=== PATIENT | male | born 1975 | race Caucasian/White ===

== ENCOUNTER 2020-08-23 16:20 | Emergency (ER) | payer BC ==
[~2020-08-23] VITALS: Ht 182.8 cm; Wt 90.7 kg
--- NOTE | 2020-08-23 16:57 | ED General ---
General Chief Complaint: General Problems/Pain Stated Complaint: COLLAR BONE PAIN/DIZZINESS Nursing Triage Note: Pt reports L sided collar bone pain and indigestion. Pt reports feeling lightheaded today while driving. Pt also reprots headache and states heart rate was 102 on watch while in the waiting room. Pt's heart rate was within normal limits at time of assessment. Nursing Sepsis Screen: No Definite Risk Source of Information: Patient Exam Limitations: No Limitations History of Present Illness Date Seen by Provider: Aug 23, 2020 Time Seen by Provider: 16:56 Initial Comments This is a 44-year-old male who is presents with left-sided collarbone pain and indigestion 2 weeks. States he was driving home today and felt lightheaded and almost passed out. Denies any episodes of syncope. States he has been monitoring his heart rate on his watch and the highest it has reached is 102bmp. Reports intermittent episodes of cool feeling on the left side of his face and intermittent episodes of blurry vision over the past couple weeks. 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 However, sought ED evaluation due to persistency of episodes. Allergies and Home Medications Allergies Coded Allergies: No Known Drug Allergies (Unverified , 08/23/20) Home Medications Cyclobenzaprine HCl 10 Mg Tablet, 10 MG PO TID PRN for PAIN-MODERATE (5-7) Prescribed by: SHAUN ACEVEDO on 08/23/20 0123 Patient Home Medication List Home Medication List Reviewed: Yes Review of Systems Review of Systems Constitutional: see HPI EENTM: see HPI Respiratory: no symptoms reported Cardiovascular: see HPI Gastrointestinal: no symptoms reported Genitourinary: no symptoms reported Musculoskeletal: see HPI Skin: no symptoms reported Psychiatric/Neurological: No Symptoms Reported Hematologic/Lymphatic: No Symptoms Reported Immunological/Allergic: no symptoms reported Past Uodjidd-Boytms-Jkqyyf Hx Patient Social History Alcohol Use: Occasionally Uses Recreational Drug Use: No 2nd Hand Smoke Exposure: No Recent Foreign Travel: No Contact w/Someone Who Travel: No Recent Infectious Disease Expo: No Recent Hopitalizations: No Past Medical History Surgeries: Yes (hernia) Physical Exam Vital Signs Vital Signs - First Documented 08/23/20 16:30 Temp 37.0 Pulse 80 Resp 15 B/P (MAP) 143/95 (111) Pulse Ox 98 O2 Delivery Room Air Capillary Refill : Less Than 3 Seconds Height, Weight, BMI Height: '" Weight: lbs. oz. kg; 27.00 BMI Method: General Appearance: No Apparent Distress, WD/WN Eyes: Bilateral Eye Normal Inspection, Bilateral Eye PERRL, Bilateral Eye EOMI HEENT: PERRL/EOMI, Normal ENT Inspection, Pharynx Normal; No Photophobia; Other (Neg carotid bruits ) Neck: Full Range of Motion, Normal Inspection, Non Tender, Supple Respiratory: Chest Non Tender, Lungs Clear, Normal Breath Sounds, No Accessory Muscle Use Cardiovascular: Regular Rate, Rhythm, No Murmur, Normal Peripheral Pulses; No Friction Rub Gastrointestinal: Normal Bowel Sounds, Non Tender, Soft Back: Normal Inspection, No Vertebral Tenderness Extremity: Normal Capillary Refill, Normal Inspection, Normal Range of Motion Neurologic/Psychiatric: Alert, Oriented x3, No Motor/Sensory Deficits, Normal Mood/Affect, manager program management II-XII Norm as Tested; No Abnormal Gait, No Motor Weakness, No Sensory Deficit Skin: Normal Color, Warm/Dry Progress/Results/Core Measures Suspected Sepsis Recent Fever Within 48 Hours: No Infection Criteria Present: None New/Unexplained Altered Menta: No Sepsis Screen: No Definite Risk SIRS Temperature: Pulse: 80 Respiratory Rate: 15 Laboratory Tests 08/23/20 17:26: White Blood Count 5.0 Blood Pressure 143 /95 Mean: 111 Laboratory Tests 08/23/20 17:26: Creatinine 0.99, INR Comment 1.0, Platelet Count 325, Total Bilirubin 0.2 Results/Orders Lab Results Laboratory Tests Test 08/23/20 17:26 Range/Units White Blood Count 5.0 4.3-11.0 10^3/uL Red Blood Count 4.63 4.30-5.52 10^6/uL Hemoglobin 13.5 13.3-17.7 g/dL Hematocrit 41 40-54 % Mean Corpuscular Volume 89 80-99 fL Mean Corpuscular Hemoglobin 29 25-34 pg Mean Corpuscular Hemoglobin Concent 33 32-36 g/dL Red Cell Distribution Width 13.2 10.0-14.5 % Platelet Count 325 130-400 10^3/uL Mean Platelet Volume 8.8 L 9.0-12.2 fL Immature Granulocyte % (Auto) 0 % Neutrophils (%) (Auto) 56 42-75 % Lymphocytes (%) (Auto) 28 12-44 % Monocytes (%) (Auto) 13 H 0-12 % Eosinophils (%) (Auto) 2 0-10 % Basophils (%) (Auto) 1 0-10 % Neutrophils # (Auto) 2.8 1.8-7.8 10^3/uL Lymphocytes # (Auto) 1.4 1.0-4.0 10^3/uL Monocytes # (Auto) 0.6 0.0-1.0 10^3/uL Eosinophils # (Auto) 0.1 0.0-0.3 10^3/uL Basophils # (Auto) 0.1 0.0-0.1 10^3/uL Immature Granulocyte # (Auto) 0.0 0.0-0.1 10^3/uL Prothrombin Time 13.3 12.2-14.7 SEC INR Comment 1.0 0.8-1.4 D-Dimer < 0.27 0.00-0.49 UG/ML Urine Color YELLOW Urine Clarity CLEAR Urine pH 7.0 5-9 Urine Specific [place] 1.020 1.016-1.022 Urine Protein NEGATIVE NEGATIVE Urine Glucose (UA) NEGATIVE NEGATIVE Urine Ketones NEGATIVE NEGATIVE Urine Nitrite NEGATIVE NEGATIVE Urine Bilirubin NEGATIVE NEGATIVE Urine Urobilinogen 0.2 < = 1.0 MG/DL Urine Leukocyte Esterase NEGATIVE NEGATIVE Urine RBC (Auto) NEGATIVE NEGATIVE Urine RBC NONE /HPF Urine WBC RARE /HPF Urine Squamous Epithelial Cells NONE /HPF Urine Renal Epithelial Cells NONE /HPF Urine Crystals NONE /LPF Urine Bacteria NEGATIVE /HPF Urine Casts PRESENT /LPF Urine Granular Casts 0-2 H /LPF Urine Mucus NEGATIVE /LPF Urine Culture Indicated NO Sodium Level 141 135-145 MMOL/L Potassium Level 3.6 3.6-5.0 MMOL/L Chloride Level 105 98-107 MMOL/L Carbon Dioxide Level 26 21-32 MMOL/L Anion Gap 10 5-14 MMOL/L Blood Urea Nitrogen 13 7-18 MG/DL Creatinine 0.99 0.60-1.30 MG/DL Estimat Glomerular Filtration Rate > 60 BUN/Creatinine Ratio 13 Glucose Level 133 H 70-105 MG/DL Calcium Level 8.6 8.5-10.1 MG/DL Corrected Calcium 8.3 L 8.5-10.1 MG/DL Total Bilirubin 0.2 0.1-1.0 MG/DL Aspartate Amino Transf (AST/SGOT) 17 5-34 U/L Alanine Aminotransferase (ALT/SGPT) 19 0-55 U/L Alkaline Phosphatase 76 40-136 U/L Troponin I < 0.028 <0.028 NG/ML C-Reactive Protein High Sensitivity 0.42 0.00-0.50 MG/DL Total Protein 7.4 6.4-8.2 GM/DL Albumin 4.4 3.2-4.5 GM/DL My Orders Orders - SHAUN ACEVEDO APRN Ct Head/Cervical Spine Wo (08/23/20 16:57) Cbc With Automated Diff (08/23/20 16:57) Comprehensive Metabolic Panel (08/23/20 16:57) Fibrin Degradation Products (08/23/20 16:57) Ekg Tracing (08/23/20 16:57) Protime With Inr (08/23/20 16:57) Troponin I (08/23/20 16:57) Ua Culture If Indicated (08/23/20 16:57) Hs C Reactive Protein (08/23/20 16:57) Chest Pa/Lat (2 View) (08/23/20 16:57) Ketorolac Injection (Toradol Injection) (08/23/20 18:30) Orphenadrine Inj (Ed Only) (Norflex Inje (08/23/20 18:30) Medications Given in ED Current Medications Medications Dose Ordered Sig/Terrie Route Start Time Stop Time Status Last Admin Dose Admin Ketorolac Tromethamine 15 mg ONCE ONCE IVP 08/23/20 18:30 08/23/20 18:31 DC 08/23/20 18:40 15 MG Orphenadrine Citrate 60 mg ONCE ONCE IM 08/23/20 18:30 08/23/20 18:31 DC 08/23/20 18:43 60 MG Vital Signs/I&O 08/23/20 08/23/20 16:30 19:00 Temp 37.0 37.0 Pulse 80 80 Resp 15 15 B/P (MAP) 143/95 (111) 143/95 (111) Pulse Ox 98 98 O2 Delivery Room Air Room Air Capillary Refill : Less Than 3 Seconds Blood Pressure Mean: 111 Progress Note : Progress Note Based on history initiated work-up for TIA and cardiac. Labs reviewed and are unremarkable. CT head C-spine reviewed which shows spurring and narrowing at the level C6-C7 and advanced degenerative changes. No acute fractures or dislocations noted. No acute intracranial process. Chest x- ray shows no acute process. Reviewed findings with patient and discharge plan, he is agreeable with plan at this time. Pain in left shoulder and arm could be related to stenosis of C6-C7 as visualized on CT scan. Given Toradol and Norflex prior to discharge. Instructed to return for any new, concerning or worsening symptoms. ECG Initial ECG Impression Date: Aug 23, 2020 Initial ECG Impression Time: 17:20 Initial ECG Rate: 78 EKG : Rhythm: Normal Sinus Intervals: Normal Diagnostic Imaging Diagonstic Imaging: CT Plain Films/CT/US/NM/MRI: c-spine, head Comments NAME: [facility] REC#: [id number] PT STATUS: REG ER : 1975 PHYSICIAN: SHAUN ACEVEDO APRN ADMIT DATE: 08/23/20/ER Signed Date of Exam:08/23/20 CT HEAD/CERVICAL SPINE WO PROCEDURE: CT head and CT cervical spine without contrast. TECHNIQUE: Multiple contiguous axial images were obtained through the brain and cervical spine without the use of intravenous contrast. Sagittal and coronal reformations through the cervical spine were then performed. Auto Exposure Controls were utilized during the CT exam to meet ALARA standards for radiation dose reduction. INDICATION: Neck pain with dizziness and blurred vision. COMPARISON: No relevant comparison. FINDINGS: There is no CT finding of an acute intracranial abnormality. There is no evidence of intracranial hemorrhage. There is no intracranial mass effect or shift. There is no hydrocephalus. There is no abnormal extra-axial collection. Calderon and white matter differentiation appears well maintained. There is no abnormal low density evident within the basal ganglia or within the clare. The posterior fossa appears unremarkable. There is no finding of a sellar mass. The mastoid air cells appear clear. Paranasal sinuses are clear. The orbital contents appear unremarkable. Cervical spine demonstrates reversal of the cervical lordosis. There are normal relationships of the craniocervical junction. There are normal relationships of the lateral masses of C1 and C2. The facets are normally aligned. There is no facet joint or disc space widening. The vertebral body heights are well maintained without evidence of an acute cervical fracture or suspicious marrow replacing lesion. There are advanced degenerative endplate changes at C6-C7 with mild narrowing of the central canal. There is also facet arthropathy and uncovertebral spurring which results in severe bilateral foraminal stenosis. The lung apices appear clear. Soft tissues of the neck demonstrate no evidence of an acute process. IMPRESSION: 1. No CT evidence of an acute intracranial abnormality. 2. No acute cervical spine fracture or traumatic malalignment. 3. Advanced degenerative disc disease, uncovertebral spurring and facet arthropathy at C6-C7 that results in high-grade bilateral foraminal stenosis and mild narrowing of the central canal. Dictated by: Dictated on workstation # [id number] Dict: 08/23/20 1719 Trans: 08/23/201836 [facility] [id number] Interpreted by: RYAN DE OLIVEIRA MD Electronically signed by: RYAN DE OLIVEIRA MD 08/23/201836 Diagonstic Imaging: Xray Plain Films/CT/US/NM/MRI: chest Comments NAME: [facility] REC#: [id number] PT STATUS: REG ER : 1975 PHYSICIAN: SHAUN ACEVEDO [employer] ADMIT DATE: 08/23/20/ER Signed Date of Exam:08/23/20 CHEST PA/LAT (2 VIEW) INDICATION: Left collarbone pain and dizziness. FINDINGS: The lungs demonstrate no focal infiltrate or consolidation. There is no effusion. There is no pneumothorax. Heart size and mediastinal contours appear appropriate. There is flattening of the diaphragms on the lateral view suggesting air trapping. Pulmonary vascularity appears normal. There is no acute osseous abnormality. The left clavicle appears unremarkable. IMPRESSION: 1. Apparent mild air trapping. No focal infiltrate demonstrated. Pulmonary vascularity appears normal. No acute or suspicious osseous abnormality evident. Dictated by: Dictated on workstation # [id number] Dict: 08/23/20 172 Trans: 08/23/201836 [facility] [id number] Interpreted by: RYAN DE OLIVEIRA MD Electronically signed by: RYAN DE OLIVEIRA MD 08/23/201836 Departure Impression Primary Impression: Collar bone pain Disposition: 01 HOME, SELF-CARE Condition: Improved Departure-Patient Inst. Decision time for Depature: 18:37 Referrals: JOHN CRAVEN DO (PCP/Family) Primary Care Physician Patient Instructions: Acute Pain, Adult Add. Discharge Instructions: Plan: 1. Discharge home. 2. Take Tylenol or Ibuprofen as needed for pain per package. 3. May use Flexeril as needed for pain every [address] NOT DRIVE WHILE TAKING. 4. Keep follow up with Dr. Craven as scheduled. 5. Return for any new or worsening symptoms. All discharge instructions reviewed with patient and/or family. Voiced understanding. Scripts Cyclobenzaprine HCl (Cyclobenzaprine HCl) 10 Mg Tablet 10 MG PO TID PRN for PAIN-MODERATE (5-7), #10 TAB 0 Refills Prov: SHAUN ACEVEDO [employer] 08/23/20 Copy Copies To 1: JOHN CRAVEN STORMY D [employer] Aug 23, 2020 16:57
[2020-08-23 17:34] LABS: BASOPHILS # (AUTO) 0.1 10^3/uL (0.0-0.1); BASOPHILS % (AUTO) 1 % (0-10); EOSINOPHILS # (AUTO) 0.1 10^3/uL (0.0-0.3); EOSINOPHILS % (AUTO) 2 % (0-10); HEMATOCRIT 41 % (40-54); HEMOGLOBIN 13.5 g/dL (13.3-17.7); LYMPHOCYTES # (AUTO) 1.4 10^3/uL (1.0-4.0); LYMPHOCYTES % (AUTO) 28 % (12-44); MEAN CORPUSCULAR HEMOGLOBIN 29 pg (25-34); MEAN CORPUSCULAR HGB CONC 33 g/dL (32-36); MEAN CORPUSCULAR VOLUME 89 fL (80-99); MEAN PLATELET VOLUME 8.8 fL (9.0-12.2); MONOCYTES # (AUTO) 0.6 10^3/uL (0.0-1.0); MONOCYTES % (AUTO) 13 % (0-12); NEUTROPHILS # (AUTO) 2.8 10^3/uL (1.8-7.8); NEUTROPHILS % (AUTO) 56 % (42-75); PLATELET COUNT 325 10^3/uL (130-400)
--- NOTE | 2020-08-23 17:36 | Diagnostic Imaging Report ---
PROCEDURE: CT head and CT cervical spine without contrast. TECHNIQUE: Multiple contiguous axial images were obtained through the brain and cervical spine without the use of intravenous contrast. Sagittal and coronal reformations through the cervical spine were then performed. Auto Exposure Controls were utilized during the CT exam to meet ALARA standards for radiation dose reduction. INDICATION: Neck pain with dizziness and blurred vision. COMPARISON: No relevant comparison. FINDINGS: There is no CT finding of an acute intracranial abnormality. There is no evidence of intracranial hemorrhage. There is no intracranial mass effect or shift. There is no hydrocephalus. There is no abnormal extra-axial collection. Calderon and white matter differentiation appears well maintained. There is no abnormal low density evident within the basal ganglia or within the clare. The posterior fossa appears unremarkable. There is no finding of a sellar mass. The mastoid air cells appear clear. Paranasal sinuses are clear. The orbital contents appear unremarkable. Cervical spine demonstrates reversal of the cervical lordosis. There are normal relationships of the craniocervical junction. There are normal relationships of the lateral masses of C1 and C2. The facets are normally aligned. There is no facet joint or disc space widening. The vertebral body heights are well maintained without evidence of an acute cervical fracture or suspicious marrow replacing lesion. There are advanced degenerative endplate changes at C6-C7 with mild narrowing of the central canal. There is also facet arthropathy and uncovertebral spurring which results in severe bilateral foraminal stenosis. The lung apices appear clear. Soft tissues of the neck demonstrate no evidence of an acute process. IMPRESSION: 1. No CT evidence of an acute intracranial abnormality. 2. No acute cervical spine fracture or traumatic malalignment. 3. Advanced degenerative disc disease, uncovertebral spurring and facet arthropathy at C6-C7 that results in high-grade bilateral foraminal stenosis and mild narrowing of the central canal. Dictated by: Dictated on workstation # [id number]
[2020-08-23 17:37] LABS: BILIRUBIN,URINE NEGATIVE (NEGATIVE); CLARITY,URINE CLEAR; COLOR,URINE YELLOW; GLUCOSE, URINE (UA) NEGATIVE (NEGATIVE); KETONES,URINE NEGATIVE (NEGATIVE); LEUKOCYTE ESTERASE ,URINE NEGATIVE (NEGATIVE); NITRITE,URINE NEGATIVE (NEGATIVE); PROTEIN,URINE NEGATIVE (NEGATIVE)
--- NOTE | 2020-08-23 17:37 | Diagnostic Imaging Report ---
INDICATION: Left collarbone pain and dizziness. FINDINGS: The lungs demonstrate no focal infiltrate or consolidation. There is no effusion. There is no pneumothorax. Heart size and mediastinal contours appear appropriate. There is flattening of the diaphragms on the lateral view suggesting air trapping. Pulmonary vascularity appears normal. There is no acute osseous abnormality. The left clavicle appears unremarkable. IMPRESSION: 1. Apparent mild air trapping. No focal infiltrate demonstrated. Pulmonary vascularity appears normal. No acute or suspicious osseous abnormality evident. Dictated by: Dictated on workstation # [id number]
[2020-08-23 17:47] LABS: BACTERIA,URINE NEGATIVE /HPF; GRANULAR CASTS,URINE 0-2 /LPF; WBC,URINE RARE /HPF
[2020-08-23 17:49] LABS: ALBUMIN 4.4 GM/DL (3.2-4.5); CHLORIDE 105 MMOL/L (98-107); POTASSIUM 3.6 MMOL/L (3.6-5.0); SODIUM 141 MMOL/L (135-145)
[2020-08-23 17:50] LABS: CALCIUM 8.6 MG/DL (8.5-10.1)
[2020-08-23 17:51] LABS: GLUCOSE 133 MG/DL (70-105); TOTAL PROTEIN 7.4 GM/DL (6.4-8.2)
[2020-08-23 17:52] LABS: CARBON DIOXIDE 26 MMOL/L (21-32)
[2020-08-23 17:53] LABS: BILIRUBIN,TOTAL 0.2 MG/DL (0.1-1.0)
[2020-08-23 17:55] LABS: ALKALINE PHOSPHATASE 76 U/L (40-136); CREATININE SERUM 0.99 MG/DL (0.60-1.30); GFR ESTIMATED > 60
[2020-08-23 17:56] LABS: BUN/CREATININE RATIO 13
[2020-08-23 17:58] LABS: ALANINE AMINOTRANSFERASE 19 U/L (0-55)
[2020-08-23] MEDS ORDERED: KETOROLAC 30 MG/ML VIAL IVP ONE (18:30)
[2020-08-23] MEDS ORDERED: ORPHENADRINE 60 MG/2 ML (NORFLEX) AMP (ED ONLY) IM ONE (18:30)
[2020-08-23] MEDS ORDERED: CYCL10TA9 PO (18:42)
[2020-08-23 18:54] LABS: FIBRIN DEGRADATION PRODUCTS < 0.27 UG/ML (0.00-0.49)
[2020-08-23 18:55] LABS: PROTHROMBIN TIME PATIENT 13.3 SEC (12.2-14.7)
[2020-08-23 19:00] VITALS: BP 143/95
== END 2020-08-23 19:00 | disposition home or self-care (01) ==
LOC: EDUNIT# 16:20 → ER 16:24
DX: M25.512 Pain in left shoulder (principal)
CPT/HCPCS: 36415; 70450; 71046; 72125; 80053; 81000; 84484; 85025; 85379; 85610; 86141; 93005

== ENCOUNTER → 2020-09-04 | Outpatient (CLI) | payer BC ==
[~2020-09-04] MED LIST: CYCL10TA9 PO
--- NOTE | 2020-09-04 17:13 | Diagnostic Imaging Report ---
PROCEDURE: MR imaging cervical spine without contrast. TECHNIQUE: Multiplanar, multisequence MR imaging of the cervical spine was performed without contrast. INDICATION: Chronic cervical spine pain. COMPARISON: Correlation is made with CT of the cervical spine performed on 08/23/2020. FINDINGS: There is reversal of cervical lordosis, similar to the previous study. There is diffuse desiccation of cervical discs. There is diffuse annular disc bulging and endplate spurring at the C5-C6 level which is eccentric on the left and results in mild left neuroforaminal stenosis. At C6-C7, there is also disc bulging and endplate spurring resulting in mild right and moderate left neuroforaminal stenosis. There does appear to be mild increased T2 signal within the C6-C7 disc with mild adjacent increased T2 endplate signal. These endplates appeared sclerotic on the recent CT study. Central cervical spinal C2 signal is seen in the lower cervical region which may be due to mild hydromyelia. IMPRESSION: 1. Localized C5-C6 and C6-C7 degenerative disc disease. Although these findings appear chronic, there does appear to be edema at the C6-C7 disc level and clinical correlation is recommended. Discitis is not fully excluded. 2. [id number] neuroforaminal stenosis which is greater on the left at C5-C6 and C6-C7 as a result of degenerative disc disease and endplate spurring. Dictated by: Dictated on workstation # [id number]
== END ==
LOC: RAD 15:57
PROVIDERS: ATTEND Internal Medicine
DX: M50.122 Cervical disc disorder at C5-C6 level with radiculopathy (principal); M50.123 Cervical disc disorder at C6-C7 level with radiculopathy; M48.02 Spinal stenosis, cervical region
CPT/HCPCS: 72141